=== PATIENT | male | born 1970 | race Caucasian/White ===

== ENCOUNTER 2018-09-05 00:37 | Emergency (ER) | payer BC ==
[2018-09-05 01:11] VITALS: O2SAT 97
[2018-09-05] MEDS ORDERED: TETRACAINE HCL 0.5% OPHTH SOL 1 DROP ONE (01:34)
[2018-09-05] MEDS ORDERED: ERYTHROMYCIN OPHTH OINT 1 APPLIC ONE (01:35)
[2018-09-05] MEDS ORDERED: HYDROcodone 7.5MG/APAP 325MG 1 EA TAB PO ONE (01:37)
[2018-09-05] MEDS ORDERED: IBUPROFEN 200 MG TAB PO ONE (01:37)
--- NOTE | 2018-09-05 01:49 | ED.PDOC ---
History of Present Illness - General Chief Complaint: Eye Problems Stated Complaint: wire hit my right eye Time Seen by Provider: 09/05/18 01:33 Source: patient Exam Limitations: no limitations - History of Present Illness Initial Comments: the patient is a 47-year-old male presenting to the emergency room approximately 5-6 hours after having had a piece of electrical wire that was not electrified scratch across the front of his right eye. He is had pain since but not really any blurry vision. the pain is more on the right upper eyelid where there is a small abrasion. No other injuries. Fluorescein exam shows a very fine linear corneal abrasion to the lower third. Extraocular movements are intact. Pupils are symmetrical and reactive. No evidence of any decreased pressure of the globe. Timing/Duration: 4-6 hours Severity: severe Improving Factors: nothing Worsening Factors: movement Associated Symptoms: denies symptoms Allergies/Adverse Reactions: Allergies Tetracycline Allergy (Unknown, Verified 09/05/18 01:42) Review of Systems - Review of Systems Constitutional: States: no symptoms reported EENTM: States: see HPI Respiratory: States: no symptoms reported Cardiology: States: no symptoms reported Gastrointestinal/Abdominal: States: no symptoms reported Genitourinary: States: no symptoms reported Musculoskeletal: States: no symptoms reported Skin: States: no symptoms reported Neurological: States: no symptoms reported Endocrine: States: no symptoms reported All other Systems: No Change from Baseline Past Medical History (General) - Patient Medical History Hx Seizures: No Hx Stroke: No Hx Dementia: No Hx Asthma: Yes Hx of COPD: No Hx Cardiac Disorders: No Hx Pacemaker: No Hx Hypertension: Yes Hx Thyroid Disease: Yes Hx Diabetes: No Hx Gastroesophageal Reflux: No Hx Renal Disease: No Hx Cancer: No Hx of HIV: No Hx Hepatitis C: No Hx MRSA: No Surgical History: no surgical history - Vaccination History Hx Tetanus, Diphtheria Vaccination: No Hx Influenza Vaccination: No Hx Pneumococcal Vaccination: No - Social History Hx Tobacco Use: No Hx Alcohol Use: No Hx Substance Use: No Hx Substance Use Treatment: No Hx Depression: No - Activities of Daily Living Hospice Agency (if applicable):: None - Triage Comment ED Triage Comment: right eye watering, red and swelling noted,pt states "my eye feels like it got something grainy in it" no visible objects seen Family Medical History - Family History Mother Hx Family;Other: pt unsure Physical Exam - Physical Exam General Appearance: Alert, Comfortable, No apparent distress Eye Exam: right other - see history of present illness, left normal Ears, Nose, Throat: normal pharynx Neck: full range of motion Respiratory: no respiratory distress, no accessory muscle use Cardiovascular/Chest: normal peripheral pulses, no edema Peripheral Pulses: radial,right: 2+, radial,left: 2+ Rectal Exam: deferred Extremity: normal range of motion, normal capillary refill Neurologic: print controller [id number] nml as tested, alert, normal mood/affect, oriented x 3 Skin Exam: normal color Comments: Vital Signs - 24 hr 09/05/18 01:00 Temperature 97.3 F L Pulse Rate [ 77 Left Radial] Respiratory 18 Rate Blood Pressure 153/110 [Left Arm] O2 Sat by Pulse 97 Oximetry Progress - Progress Progress: 09/05/18 01:50 the patient is a 47-year-old male presenting with a corneal abrasion to the right eye. He is to use the erythromycin ointment 1 cm 6 times a day for the next 5 days. He is keep the eyes from getting dry. 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 Oral ibuprofen to help with discomfort and he will also be written for tramadol for as needed use. ER warnings were given for any worsening. Departure - Departure Clinical Impression: Corneal abrasion Qualifiers: Encounter type: initial encounter Laterality: right Qualified Code(s): S05.01XA - Injury of conjunctiva and corneal abrasion without foreign body, right eye, initial encounter Disposition: Discharge to Home or Self Care Condition: Good Departure Forms: ED Discharge - Pt. Copy, Patient Portal Self Enrollment Diet: regular diet Activity: increase activity as tolerated Referrals: KATH CHAVIRA [Primary Care Provider] - 1-2 Weeks Additional Instructions: the patient is a 47-year-old male presenting with a corneal abrasion to the right eye. He is to use the erythromycin ointment 1 cm 6 times a day for the next 5 days. He is keep the eyes from getting dry. 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 Oral ibuprofen to help with discomfort and he will also be written for tramadol for as needed use. ER warnings were given for any worsening.
[2018-09-05 04:20] VITALS: BP 139/102; TEMP 97.6
== END 2018-09-05 02:00 | disposition home or self-care (01) ==
LOC: ER 00:37
DX: S05.01XA Injury of conjunctiva and corneal abrasion without foreign body, right eye, initial encounter (principal); E07.9 Disorder of thyroid, unspecified; J45.909 Unspecified asthma, uncomplicated; I10 Essential (primary) hypertension; W22.8XXA Striking against or struck by other objects, initial encounter; Z88.3 Allergy status to other anti-infective agents; Y92.9 Unspecified place or not applicable